=== PATIENT | female | born 1945 | race Caucasian/White ===

== ENCOUNTER 2020-04-29 22:10 | Inpatient (IN) | payer MEDICARE, MEDICAID ==
[~2020-04-29] VITALS: Ht 170.2 cm; Wt 66.6 kg
[2020-04-29] MEDS ORDERED: ACETAMINOPHEN 325 MG TAB PO ONE (22:30)
[2020-04-29] MEDS ORDERED: DOXYCYCLINE 100MG/250ML 250 ML IV ONE (23:00)
[2020-04-29] MEDS ORDERED: DexAMETHasone SOD PHOS 10MG/1ML VIAL INJ IV ONE (23:00)
[2020-04-29] MEDS ORDERED: SODIUM CHLORIDE 0.9% 1,000 ML IV ONE (23:00)
[2020-04-29 23:19] LABS: Basophils # (auto) 0 10 ^3/uL (0-0.2); Basophils % (auto) 0.2 % (0.0-2.0); Eosinophils # (auto) 0 10 ^3/uL (0-0.8); Hematocrit 37.4 % (36.0-46.0); Hemoglobin 12.4 g/dL (12.2-16.2); Lymphocytes # (auto) 0.5 10 ^3/uL (0.4-5.4); Lymphocytes % (auto) 2.7 % (10.0-50.0); Mean Corpuscular Hemoglobin 32.1 pg (28.0-32.0); Mean Corpuscular Hgb Conc. 33.2 g/dL (32.0-36.0); Mean Corpuscular Volume 96.7 fL (80.0-100.0); Monocytes # (auto) 0.8 10 ^3/uL (0-1.3); Monocytes % (auto) 4.5 % (0.0-12.0); Neutrophils # (auto) 15.8 10 ^3/uL (1.6-8.6); Neutrophils % (auto) 92.6 % (37.0-80.0); Platelet Count (auto) 200 10^3/uL (140-450); Red Blood Cells 3.87 10^6/uL (4.0-5.20); Red Cell Distribution Width 14.9 % (11.8-14.3); White Blood Cell 17.1 10^3/uL (4.4-10.8)
[2020-04-29 23:35] LABS: Potassium 3.1 mmol/L (3.5-5.1)
[2020-04-29 23:36] LABS: INR 1.11 (0.9-1.15); Lactic Acid w/Reflex 2.6 mmol/L (0.4-2.0); Partial Thromboplastin Time 30.6 sec (23.0-31.2)
[2020-04-29 23:43] LABS: Albumin 3.1 g/dL (3.4-5.0); BUN/Creatinine Ratio 12.6; Bilirubin, Total 0.5 mg/dL (0.2-1.0); Calcium 8.4 mg/dL (8.5-10.1); Total Protein 7.4 g/dL (6.4-8.2)
[2020-04-30 00:20] LABS: Urine Bacteria MANY /hpf (None Seen); Urine Blood 2+ /uL (Negative); Urine Hyaline Cast FEW /lpf (0 - 2); Urine Specific Gravity 1.014 (1.001-1.035); Urine WBC 551 /hpf (0 - 5); Urine WBC Clumps PRESENT /hpf (None Seen)
[2020-04-30] MEDS ORDERED: SODIUM CHLORIDE 0.9% 1,000 ML IV SCH (04:09)
[2020-04-30] MEDS ORDERED: ONDANSETRON HCL 4 MG/2 ML VIAL IV PRN (04:15)
[2020-04-30] MEDS ORDERED: DOCUSATE SOD 100 MG CAP PO PRN (04:15)
[2020-04-30 06:35] LABS: Basophils # (auto) 0.1 10 ^3/uL (0-0.2); Basophils % (auto) 0.8 % (0.0-2.0); Eosinophils # (auto) 0 10 ^3/uL (0-0.8); Eosinophils % (auto) 0.1 % (0.0-7.0); Hematocrit 37.5 % (36.0-46.0); Lymphocytes # (auto) 0.5 10 ^3/uL (0.4-5.4); Lymphocytes % (auto) 2.9 % (10.0-50.0); Mean Corpuscular Hemoglobin 31.3 pg (28.0-32.0); Mean Corpuscular Hgb Conc. 32.1 g/dL (32.0-36.0); Mean Corpuscular Volume 97.5 fL (80.0-100.0); Monocytes # (auto) 0.5 10 ^3/uL (0-1.3); Monocytes % (auto) 3.1 % (0.0-12.0); Neutrophils # (auto) 14.9 10 ^3/uL (1.6-8.6); Neutrophils % (auto) 93.1 % (37.0-80.0); Platelet Count (auto) 175 10^3/uL (140-450); Red Blood Cells 3.84 10^6/uL (4.0-5.20)
[2020-04-30 06:55] LABS: Calcium 8.1 mg/dL (8.5-10.1)
[2020-04-30 06:59] LABS: BUN/Creatinine Ratio 14.7
[2020-04-30] MEDS ORDERED: cefTRIAXone 1GM/50ML D5W 50 ML IV SCH (10:00)
[2020-04-30] MEDS ORDERED: FUROSEMIDE 40 MG/4 ML VIAL IV SCH (10:00)
[2020-04-30] MEDS ORDERED: POTASSIUM CHL 20 Meq TABLET PO ONE (11:30)
[2020-04-30 13:00] VITALS: BP 140/60
[2020-04-30 17:00] VITALS: BP 140/75
[2020-04-30] MEDS: ATORVASTATIN 20 MG TAB PO SCH (18:00)
[2020-04-30 18:13] VITALS: BP 154/80
[2020-04-30] MEDS: ACETAMINOPHEN 325 MG TAB PO PRN (18:22)
[2020-04-30] MEDS ORDERED: ROPI0.5T18 PO (19:37)
[2020-04-30] MEDS ORDERED: IBUP800T24 PO (19:37)
[2020-04-30] MEDS ORDERED: HYDR-4188 PO (19:37)
[2020-04-30] MEDS ORDERED: POTA10TA51 PO (19:37)
[2020-04-30] MEDS ORDERED: CYCL10TA6 PO (19:37)
[2020-04-30] MEDS ORDERED: ESOM40CA39 PO (19:37)
[2020-04-30] MEDS ORDERED: EST0625T PO (19:37)
[2020-04-30] MEDS ORDERED: ZOLP12.569 PO (19:37)
[2020-04-30] MEDS ORDERED: LINA290C OR (19:37)
[2020-04-30] MEDS ORDERED: HYDR25TA4 PO (19:37)
[2020-04-30] MEDS ORDERED: METH2.5T PO (19:37)
[2020-04-30] MEDS ORDERED: LIOT5TAB20 PO (19:37)
[2020-04-30] MEDS ORDERED: LORA-622 PO (19:37)
[2020-04-30 22:18] VITALS: BP 132/62
[2020-05-01] MEDS: ACETAMINOPHEN 325 MG TAB PO PRN ×3 (04:45→17:45)
[2020-05-01 05:21] VITALS: BP 125/67
[2020-05-01 06:08] LABS: Basophils # (auto) 0 10 ^3/uL (0-0.2); Basophils % (auto) 0.1 % (0.0-2.0); Eosinophils # (auto) 0 10 ^3/uL (0-0.8); Hematocrit 35.4 % (36.0-46.0); Lymphocytes # (auto) 0.8 10 ^3/uL (0.4-5.4); Lymphocytes % (auto) 5.6 % (10.0-50.0); Mean Corpuscular Hemoglobin 32.4 pg (28.0-32.0); Mean Corpuscular Hgb Conc. 33.9 g/dL (32.0-36.0); Mean Corpuscular Volume 95.5 fL (80.0-100.0); Monocytes # (auto) 0.8 10 ^3/uL (0-1.3); Monocytes % (auto) 5.5 % (0.0-12.0); Neutrophils # (auto) 12.9 10 ^3/uL (1.6-8.6); Neutrophils % (auto) 88.8 % (37.0-80.0); Platelet Count (auto) 177 10^3/uL (140-450); Red Blood Cells 3.71 10^6/uL (4.0-5.20); Red Cell Distribution Width 15.1 % (11.8-14.3); White Blood Cell 14.5 10^3/uL (4.4-10.8)
[2020-05-01 06:23] LABS: BUN/Creatinine Ratio 21.1; Calcium 8.5 mg/dL (8.5-10.1)
[2020-05-01 06:28] LABS: Potassium 2.9 mmol/L (3.5-5.1)
[2020-05-01] MEDS ORDERED: POTASSIUM CHL 20 Meq TABLET PO ONE (07:30)
[2020-05-01 08:33] VITALS: BP 126/75
[2020-05-01] MEDS ORDERED: POTASSIUM EFFERVESENT TAB 25 MEQ PO ONE (09:15)
[2020-05-01] MEDS ORDERED: PIPERACILLIN-TAZO 4.5GM 100 ML IV ONE (11:00)
[2020-05-01] MEDS ORDERED: VANCOMYCIN PER PHARMACY 0 MG IV SCH (11:00)
[2020-05-01] MEDS ORDERED: ENOXAPARIN SOD 60 MG/0.6 ML SYRINGE SC ONE (11:30)
[2020-05-01 12:48] VITALS: BP 125/79
[2020-05-01 17:02] VITALS: BP 131/82
[2020-05-01] MEDS: VANCOMYCIN 1GM/250ML 250 ML IV SCH (17:44)
[2020-05-01] MEDS: ATORVASTATIN 20 MG TAB PO SCH (18:40)
[2020-05-01] MEDS: PIPERACILLIN-TAZO 4.5GM 100 ML IV SCH (21:41)
[2020-05-01 21:59] VITALS: BP 115/73
[2020-05-02] MEDS ORDERED: dilTIAZem 25 MG/5 ML VIAL IV ONE ×2 (04:19→04:30)
[2020-05-02] MEDS: ACETAMINOPHEN 325 MG TAB PO PRN ×2 (04:40→09:47)
[2020-05-02 05:00] VITALS: BP 131/76
[2020-05-02] MEDS: VANCOMYCIN 1GM/250ML 250 ML IV SCH ×2 (05:03→17:37)
[2020-05-02 05:58] LABS: Basophils # (auto) 0.1 10 ^3/uL (0-0.2); Basophils % (auto) 0.5 % (0.0-2.0); Eosinophils # (auto) 0 10 ^3/uL (0-0.8); Hematocrit 38.5 % (36.0-46.0); Hemoglobin 12.5 g/dL (12.2-16.2); Lymphocytes # (auto) 0.8 10 ^3/uL (0.4-5.4); Lymphocytes % (auto) 7.5 % (10.0-50.0); Mean Corpuscular Hemoglobin 31.3 pg (28.0-32.0); Mean Corpuscular Hgb Conc. 32.5 g/dL (32.0-36.0); Mean Corpuscular Volume 96.3 fL (80.0-100.0); Monocytes # (auto) 1.3 10 ^3/uL (0-1.3); Monocytes % (auto) 12.3 % (0.0-12.0); Neutrophils # (auto) 8.7 10 ^3/uL (1.6-8.6); Neutrophils % (auto) 79.7 % (37.0-80.0); Nucleated Red Blood Cells % 0.1 %; Platelet Count (auto) 160 10^3/uL (140-450); Red Blood Cells 3.99 10^6/uL (4.0-5.20); Red Cell Distribution Width 15.3 % (11.8-14.3); White Blood Cell 10.9 10^3/uL (4.4-10.8)
[2020-05-02 06:23] LABS: Potassium 3.1 mmol/L (3.5-5.1)
[2020-05-02] MEDS: PIPERACILLIN-TAZO 4.5GM 100 ML IV SCH ×2 (06:28→13:32)
[2020-05-02 06:32] LABS: BUN/Creatinine Ratio 21.8; Calcium 8.2 mg/dL (8.5-10.1)
[2020-05-02 08:00] VITALS: BP 109/69
[2020-05-02] MEDS ORDERED: ENOXAPARIN SOD 40 MG/0.4 ML SYRINGE SC SCH (10:00)
[2020-05-02 12:30] VITALS: BP 109/69
[2020-05-02] MEDS ORDERED: FUROSEMIDE 20 MG/2 ML VIAL IV ONE (13:00)
[2020-05-02] MEDS ORDERED: POTASSIUM EFFERVESENT TAB 25 MEQ PO ONE (13:00)
[2020-05-02] MEDS ORDERED: POTASSIUM CHL 20 Meq TABLET PO ONE (13:00)
[2020-05-02] MEDS: HYDROcodone-ACET 5/325MG TAB PO PRN ×2 (13:32→21:11)
[2020-05-02 16:30] VITALS: BP 90/68
[2020-05-02] MEDS: cefTRIAXone 1GM/50ML D5W 50 ML IV SCH (16:41)
[2020-05-02] MEDS: ATORVASTATIN 20 MG TAB PO SCH (17:37)
[2020-05-02 21:53] VITALS: BP 108/74
[2020-05-02] MEDS: ENOXAPARIN SOD 80 MG/0.8ML SYRINGE SC SCH (22:05)
[2020-05-03 05:00] VITALS: BP 121/71
[2020-05-03] MEDS: HYDROcodone-ACET 5/325MG TAB PO PRN (06:55)
[2020-05-03] MEDS: LEVOTHYROXINE SODIUM 50 MCG TAB PO SCH (06:55)
[2020-05-03 08:00] VITALS: BP 109/71
[2020-05-03] MEDS ORDERED: POTASSIUM EFFERVESENT TAB 25 MEQ PO ONE (08:30)
[2020-05-03] MEDS: cefTRIAXone 1GM/50ML D5W 50 ML IV SCH (08:44)
[2020-05-03 08:52] LABS: Basophils # (auto) 0 10 ^3/uL (0-0.2); Basophils % (auto) 0.2 % (0.0-2.0); Eosinophils # (auto) 0.1 10 ^3/uL (0-0.8); Hemoglobin 12.1 g/dL (12.2-16.2); Lymphocytes # (auto) 1.5 10 ^3/uL (0.4-5.4); Lymphocytes % (auto) 16.7 % (10.0-50.0); Mean Corpuscular Hemoglobin 31.1 pg (28.0-32.0); Mean Corpuscular Hgb Conc. 32.7 g/dL (32.0-36.0); Mean Corpuscular Volume 94.9 fL (80.0-100.0); Monocytes # (auto) 1.6 10 ^3/uL (0-1.3); Monocytes % (auto) 17.3 % (0.0-12.0); Neutrophils # (auto) 5.9 10 ^3/uL (1.6-8.6); Neutrophils % (auto) 64.8 % (37.0-80.0); Platelet Count (auto) 155 10^3/uL (140-450); White Blood Cell 9.2 10^3/uL (4.4-10.8)
[2020-05-03 09:00] VITALS: BP 109/71
[2020-05-03 09:14] LABS: Chloride 99 mmol/L (98-107); Potassium 3.4 mmol/L (3.5-5.1); Sodium 131 mmol/L (136-145)
[2020-05-03] MEDS ORDERED: IOHEXOL 350 MG/ML 100ML IJ ONE (10:28)
[2020-05-03] MEDS: VANCOMYCIN 1GM/250ML 250 ML IV SCH ×2 (10:29→21:36)
[2020-05-03] MEDS: ENOXAPARIN SOD 80 MG/0.8ML SYRINGE SC SCH ×2 (10:30→21:36)
[2020-05-03] MEDS: SODIUM CHLORIDE 0.9% 1,000 ML IV SCH (11:23)
[2020-05-03 12:08] LABS: Anion Gap 10 (5-15); BUN/Creatinine Ratio 21.8; Blood Urea Nitrogen 12 mg/dL (7-18); Calcium 7.8 mg/dL (8.5-10.1); Carbon Dioxide 22 mmol/L (21-32); GFR African American 140 mL/min; GFR Non-African American 115 mL/min; Glucose 89 mg/dL (74-106)
[2020-05-03 13:00] VITALS: BP 107/71
[2020-05-03] MEDS ORDERED: VANCOMYCIN 1GM/250ML 250 ML IV SCH (14:00)
[2020-05-03] MEDS: OXYCODONE W/ ACETAMINOPHEN 5/325MG TABLET PO PRN ×2 (14:39→20:26)
[2020-05-03 17:00] VITALS: BP_SYST 116; BP_SYST 16; BP_DIAS 72
[2020-05-03] MEDS: ATORVASTATIN 20 MG TAB PO SCH (18:51)
[2020-05-03 21:29] VITALS: BP 118/75
[2020-05-04] MEDS: OXYCODONE W/ ACETAMINOPHEN 5/325MG TABLET PO PRN ×3 (02:07→18:10)
[2020-05-04 02:33] LABS: Urine Bacteria NONE SEEN /hpf (None Seen); Urine Blood TRACE /uL (Negative); Urine Mucus FEW (None Seen); Urine Specific Gravity 1.029 (1.001-1.035); Urine WBC 41 /hpf (0 - 5)
[2020-05-04 05:51] VITALS: BP 116/74
[2020-05-04] MEDS: SODIUM CHLORIDE 0.9% 1,000 ML IV SCH (06:00)
[2020-05-04] MEDS: LEVOTHYROXINE SODIUM 50 MCG TAB PO SCH (06:28)
[2020-05-04 07:10] LABS: Partial Thromboplastin Time 31.3 sec (23.0-31.2)
[2020-05-04 08:59] VITALS: BP 116/67
[2020-05-04] MEDS: cefTRIAXone 1GM/50ML D5W 50 ML IV SCH (09:42)
[2020-05-04] MEDS: VANCOMYCIN 1GM/250ML 250 ML IV SCH (09:47)
[2020-05-04] MEDS: ENOXAPARIN SOD 80 MG/0.8ML SYRINGE SC SCH (10:00)
[2020-05-04] MEDS ORDERED: MIDAZOLAM HCL 5 MG/ML-1ML VIAL IV ONE (12:00)
[2020-05-04] MEDS ORDERED: diphenhdrAMINE HCL 50 MG/1 ML VL ONE (12:50)
[2020-05-04] MEDS ORDERED: MIDAZOLAM HCL 1MG/1ML-2 ML VIAL ONE (12:51)
[2020-05-04 13:00] VITALS: BP 112/70
[2020-05-04] MEDS ORDERED: APIX5TAB PO (16:24)
[2020-05-04] MEDS ORDERED: CEPH-37 PO (16:24)
[2020-05-04 16:30] VITALS: BP 132/76
[2020-05-04] MEDS: ATORVASTATIN 20 MG TAB PO SCH (18:09)
[2020-05-04 21:09] VITALS: BP 107/65
[2020-05-04] MEDS: APIXABAN 5 MG TAB PO SCH (21:32)
[2020-05-05] MEDS: OXYCODONE W/ ACETAMINOPHEN 5/325MG TABLET PO PRN ×2 (00:11→06:12)
[2020-05-05 04:36] VITALS: BP 114/74
[2020-05-05] MEDS: LEVOTHYROXINE SODIUM 50 MCG TAB PO SCH (06:12)
[2020-05-05 09:00] VITALS: BP 120/72
[2020-05-05] MEDS: APIXABAN 5 MG TAB PO SCH (09:12)
[2020-05-05] MEDS: cefTRIAXone 1GM/50ML D5W 50 ML IV SCH (09:13)
[2020-05-05 10:16] LABS: Basophils # (auto) 0 10 ^3/uL (0-0.2); Basophils % (auto) 0.4 % (0.0-2.0); Eosinophils # (auto) 0.7 10 ^3/uL (0-0.8); Eosinophils % (auto) 6.8 % (0.0-7.0); Hematocrit 34.6 % (36.0-46.0); Lymphocytes # (auto) 1.3 10 ^3/uL (0.4-5.4); Lymphocytes % (auto) 13.7 % (10.0-50.0); Mean Corpuscular Hemoglobin 32.8 pg (28.0-32.0); Mean Corpuscular Hgb Conc. 34.8 g/dL (32.0-36.0); Mean Corpuscular Volume 94.4 fL (80.0-100.0); Monocytes # (auto) 1.5 10 ^3/uL (0-1.3); Monocytes % (auto) 14.9 % (0.0-12.0); Neutrophils # (auto) 6.3 10 ^3/uL (1.6-8.6); Neutrophils % (auto) 64.2 % (37.0-80.0); Nucleated Red Blood Cells % 0.1 %; Platelet Count (auto) 224 10^3/uL (140-450); Red Blood Cells 3.67 10^6/uL (4.0-5.20); Red Cell Distribution Width 15.1 % (11.8-14.3); White Blood Cell 9.8 10^3/uL (4.4-10.8)
[2020-05-05 10:38] LABS: Potassium 3.1 mmol/L (3.5-5.1)
[2020-05-05] MEDS ORDERED: POTASSIUM CHL 20 Meq TABLET PO ONE (11:00)
[2020-05-05 13:38] VITALS: BP 112/66
[2020-05-05 15:14] VITALS: BP 112/66
== END 2020-05-05 15:00 | disposition home or self-care (01) | DRG 871 ==
LOC: EDUNIT# 22:10 → EDBD 22:10 → ER 22:12 → TELE 22:13 → TELE-EAST 04-30 09:15 → TELE-CENTR 04-30 17:52
PROVIDERS: ADMIT Hospitalist; ATTEND Internal Medicine Nephrology
PROC: B246ZZ4 Ultrasonography of Right and Left Heart, Transesophageal (ICD-10-PCS; principal; 2020-05-04)
DX: A41.9 Sepsis, unspecified organism (principal); G93.41 Metabolic encephalopathy; I50.33 Acute on chronic diastolic (congestive) heart failure; N39.0 Urinary tract infection, site not specified; D68.9 Coagulation defect, unspecified; Z20.828 Contact with and (suspected) exposure to other viral communicable diseases; G30.0 Alzheimer's disease with early onset; M79.7 Fibromyalgia; M06.9 Rheumatoid arthritis, unspecified; M19.90 Unspecified osteoarthritis, unspecified site; I48.91 Unspecified atrial fibrillation; Z79.01 Long term (current) use of anticoagulants; E87.6 Hypokalemia; D64.9 Anemia, unspecified; E03.9 Hypothyroidism, unspecified; F02.80 Dementia in other diseases classified elsewhere, unspecified severity, without behavioral disturbance, psychotic disturbance, mood disturbance, and anxiety; G47.33 Obstructive sleep apnea (adult) (pediatric); I11.0 Hypertensive heart disease with heart failure; K57.30 Diverticulosis of large intestine without perforation or abscess without bleeding; Z87.891 Personal history of nicotine dependence; Z96.659 Presence of unspecified artificial knee joint; Z98.1 Arthrodesis status; R65.20 Severe sepsis without septic shock; Z88.5 Allergy status to narcotic agent; Z88.1 Allergy status to other antibiotic agents
CPT/HCPCS: 36415; 70450; 71045; 71275; 74178; 76775; 80048; 80053; 80061; 80202; 81001; 82728; 82962; 83605; 83735; 83880; 84132; 84439; 84443; 84484; 85025; 85379; 85610; 85730; 87040; 87077; 87086; 87088; 87186; 87426; 87493; 93005; 93306; 93312; 93970; 99152; G0378; J0696; J1100; J2250; J2405; J2543; J3490

== ENCOUNTER 2022-08-01 13:31 | Inpatient (IN) | payer MEDICARE, MEDICAID ==
[~2022-08-01] VITALS: Ht 170.2 cm; Wt 59.5 kg
[~2022-08-01 13:31] MED LIST: APIX5TAB PO; CEPH-37 PO; CYCL-839 PO; ESOM40CA39 PO; EST0625T PO; HYDR-4188 PO; HYDR25TA4 PO; LINA290C OR; LIOT5TAB20 PO; LORA-622 PO; METH2.5T PO; POTA10TA51 PO; ROPI0.5T18 PO
[2022-08-01 15:15] LABS: Basophils # (auto) 0 10 ^3/uL (0-0.2); Basophils % (auto) 0.8 % (0.0-2.0); Eosinophils # (auto) 0.1 10 ^3/uL (0-0.8); Eosinophils % (auto) 2.5 % (0.0-7.0); Hemoglobin 13.2 g/dL (12.2-16.2); Lymphocytes # (auto) 0.8 10 ^3/uL (0.4-5.4); Lymphocytes % (auto) 13.9 % (10.0-50.0); Mean Corpuscular Hemoglobin 29.6 pg (28.0-32.0); Mean Corpuscular Hgb Conc. 33.1 g/dL (32.0-36.0); Mean Corpuscular Volume 89.4 fL (80.0-100.0); Monocytes # (auto) 0.6 10 ^3/uL (0-1.3); Monocytes % (auto) 9.9 % (0.0-12.0); Neutrophils # (auto) 4.1 10 ^3/uL (1.6-8.6); Neutrophils % (auto) 72.9 % (37.0-80.0); Red Blood Cells 4.48 10^6/uL (4.0-5.20); Red Cell Distribution Width 15.6 % (11.8-14.3); White Blood Cell 5.7 10^3/uL (4.4-10.8)
[2022-08-01 15:30] LABS: INR 1.04 (0.9-1.15); Partial Thromboplastin Time 39.7 sec (24.6-33.4)
[2022-08-01 15:31] LABS: Albumin 3.3 g/dL (3.4-5.0); BUN/Creatinine Ratio 15.9; Calcium 8.8 mg/dL (8.5-10.1); Potassium 4.6 mmol/L (3.5-5.1)
[2022-08-01 15:34] LABS: Bilirubin, Total 0.4 mg/dL (0.2-1.0); Total Protein 7.5 g/dL (6.4-8.2)
[2022-08-01] MEDS ORDERED: MORPHINE SULFATE INJ 2 MG/ml SYRG IV PRN ×2 (19:15)
[2022-08-01] MEDS ORDERED: NITROGLYCERIN 0.4 MG SL TAB SL PRN (19:15)
[2022-08-01] MEDS ORDERED: ONDANSETRON HCL 4 MG/2 ML VIAL IV PRN (19:15)
[2022-08-01] MEDS ORDERED: ROPINIROLE HCL 0.5 MG PO SCH (22:00)
[2022-08-02] MEDS ORDERED: HYDROcodone-ACET 5/325MG TAB PO PRN (04:45)
[2022-08-02] MEDS ORDERED: traMADol HCL 50 MG TAB PO PRN (05:15)
[2022-08-02] MEDS ORDERED: Liothyronine Sodium 5 MCG PO SCH (07:00)
[2022-08-02 07:16] LABS: Basophils # (auto) 0.1 10 ^3/uL (0-0.2); Basophils % (auto) 2.3 % (0.0-2.0); Eosinophils # (auto) 0.2 10 ^3/uL (0-0.8); Eosinophils % (auto) 3.9 % (0.0-7.0); Hematocrit 40.5 % (36.0-46.0); Hemoglobin 13.2 g/dL (12.2-16.2); Lymphocytes # (auto) 2.2 10 ^3/uL (0.4-5.4); Lymphocytes % (auto) 34.9 % (10.0-50.0); Mean Corpuscular Hemoglobin 29.3 pg (28.0-32.0); Mean Corpuscular Hgb Conc. 32.5 g/dL (32.0-36.0); Mean Corpuscular Volume 90.2 fL (80.0-100.0); Monocytes # (auto) 0.7 10 ^3/uL (0-1.3); Monocytes % (auto) 11.5 % (0.0-12.0); Neutrophils % (auto) 47.4 % (37.0-80.0); Nucleated Red Blood Cells % 0.1 %; Red Blood Cells 4.49 10^6/uL (4.0-5.20); White Blood Cell 6.3 10^3/uL (4.4-10.8)
[2022-08-02 07:36] LABS: Albumin 3.2 g/dL (3.4-5.0); BUN/Creatinine Ratio 14.7; Calcium 9.3 mg/dL (8.5-10.1); Potassium 4.3 mmol/L (3.5-5.1)
[2022-08-02 07:39] LABS: Bilirubin, Total 0.4 mg/dL (0.2-1.0); Total Protein 7.8 g/dL (6.4-8.2)
[2022-08-02 08:30] VITALS: BP 116/54
[2022-08-02] MEDS ORDERED: PANTOPRAZOLE 40 MG TAB PO SCH (10:00)
[2022-08-02] MEDS ORDERED: METHOTREXATE 2.5 MG TAB PO SCH (10:00)
[2022-08-02] MEDS ORDERED: HCTZ 25 MG TAB PO SCH (10:00)
[2022-08-02] MEDS ORDERED: PANTOPRAZOLE 40 MG/10 ML VIAL INJ IV SCH (10:00)
[2022-08-02] MEDS ORDERED: LINACLOTIDE BASE PO SCH (10:00)
[2022-08-02] MEDS ORDERED: POTASSIUM CHL 10 Meq TABLET PO SCH (10:00)
[2022-08-02] MEDS ORDERED: hydrOXYchloroQUINE SULFATE 200 MG TAB PO SCH (10:00)
== END 2022-08-02 08:30 | disposition left against medical advice (07) | DRG 384 ==
LOC: ER 13:31 → EDBD 13:31 → TELE 19:09
PROVIDERS: ADMIT Nurse Practitioner Family; ATTEND Nurse Practitioner Family
PROC: 0HQ1XZZ Repair Face Skin, External Approach (ICD-10-PCS; principal; 2022-08-01)
DX: S01.81XA Laceration without foreign body of other part of head, initial encounter (principal); E87.1 Hypo-osmolality and hyponatremia; E03.9 Hypothyroidism, unspecified; I10 Essential (primary) hypertension; Z53.29 Procedure and treatment not carried out because of patient's decision for other reasons; Z20.822 Contact with and (suspected) exposure to COVID-19; K21.9 Gastro-esophageal reflux disease without esophagitis; W01.0XXA Fall on same level from slipping, tripping and stumbling without subsequent striking against object, initial encounter; M81.0 Age-related osteoporosis without current pathological fracture; Z79.01 Long term (current) use of anticoagulants; Z90.49 Acquired absence of other specified parts of digestive tract; Z88.8 Allergy status to other drugs, medicaments and biological substances; Z88.5 Allergy status to narcotic agent; Y93.89 Activity, other specified; Y92.89 Other specified places as the place of occurrence of the external cause; Y99.8 Other external cause status
CPT/HCPCS: 12013; 36415; 70450; 70486; 72125; 80053; 84484; 85025; 85610; 85730; 87426; 93005; G0378